=== PATIENT | male | born 1930 | race Caucasian/White ===

== ENCOUNTER → 2017-04-23 | Day surgery (SDC) | payer BC ==
[~2017-04-23] VITALS: Ht 181.6 cm; Wt 83.9 kg
[~2017-04-23] MED LIST: ASPI325T8 PO; BUPIVAC MPF-EPI 0.5%-1:200000 30 ML VIAL. ONE; DEXAMETHASONE SOD PHOS 20 MG/5 ML VIAL. ONE; GLIP5TAB10 PO; GLYCOPYRROLATE 1 MG/5 ML VIAL. ONE; HYDR-971 PO; HYDROcodone/APAP 5/325MG 1 TAB TABLET PO ONE; HYDROmorphone 2 MG/ML VIAL IV PRN; IV RINGERS,LACTATED 1000ML 1,000 ML IV SCH; LIDOCAINE 1% 1 ML SYRINGE. ID PRN; LIDOCAINE 2% PF Vial for OR 5 ML VIAL. ONE; METF-620 PO; METO25TA4 PO; MORPHINE SULFATE 2 MG/ML DISP.SYRIN. IV PRN; NEOSTIGMINE 10 MG/10 ML VIAL. ONE; ONDANSETRON PF 4 MG/2 ML VIAL. IV PRN; ONDANSETRON PF 4 MG/2 ML VIAL. ONE; PROCHLORPERAZINE 10 MG/2 ML VIAL. IV PRN; PROPOFOL 20 ML IV ONE; ROCURONIUM 100 MG/10 ML VIAL. ONE; SEVOFLURANE 61 TO 120 MINUTES. IH ONE; SIMV40TA3 PO; TAMS0.4C2 PO; ePHEDrine PF IN SALINE 50 MG/5 ML DISP.SYRIN IV ONE; fentaNYL PF VIAL 100 MCG/2 ML VIAL IV PRN; fentaNYL PF VIAL 100 MCG/2 ML VIAL ONE
--- NOTE | 2017-04-23 07:04 | PDOC1 ---
History and Physical Date of Admission Date of Admission DATE: 04/23/17 TIME: 07:01 History of Present Illness History of Present Illness The patient is an 86 year old male who was referred with an umbilical hernia. He states it has been there for quite some time, and appears to be slowly enlarging. Past Medical History Past Medical History Diabetes, HTN, CAD, hypercholesterolemia Past Surgical History Past Surgical History CABG in 2003, excision of nevus Social History Smoke: No ALCOHOL: rare Current Medications Current Medications Current Medications Ondansetron HCl (Zofran) 4 mg PRN Q6HRS PRN IV NAUSEA/VOMITING; Start 04/23/17 at 07:00; Stop 04/24/17 at 06:59 Fentanyl Citrate (Fentanyl 2ml Vial) 25 mcg PRN Q5MIN PRN IV MILD PAIN; Start 04/23/17 at 07:00; Stop 04/24/17 at 06:59 Fentanyl Citrate (Fentanyl 2ml Vial) 50 mcg PRN Q5MIN PRN IV MODERATE PAIN; Start 04/23/17 at 07:00; Stop 04/24/17 at 06:59 Morphine Sulfate 1 mg PRN Q10MIN PRN IV SEVERE PAIN; Start 04/23/17 at 07:00; Stop 04/24/17 at 06:59 Ringer's Solution 1,000 ml @ 30 mls/hr Q24H IV ; Start 04/23/17 at 07:00; Stop 04/23/17 at 18:59 Lidocaine HCl 2 ml PRN 1X PRN ID PRIOR TO IV START; Start 04/23/17 at 07:00; Stop 04/24/17 at 06:59 Hydromorphone HCl (Dilaudid) 0.5 mg PRN Q10MIN PRN IV SEV PAIN, Second choice; Start 04/23/17 at 07:00; Stop 04/24/17 at 06:59 Prochlorperazine Edisylate (Compazine) 5 mg PACU PRN PRN IV NAUSEA, MRX1; Start 04/23/17 at 07:00; Stop 04/24/17 at 06:59 Cefazolin Sodium/ Dextrose 50 ml @ 100 mls/hr 1X PREOP PRN IV PRIOR TO PROCEDURE; Start 04/23/17 at 06:00; Stop 04/23/17 at 18:00 Bupivacaine HCl/ Epinephrine Bitart (Sensorcain-Mpf Epi 0.5%-1:[id number]) 30 ml STK -MED ONCE .ROUTE ; Start 04/23/17 at 06:32; Stop 04/23/17 at 06:33; Status DC Active Scripts Active Reported Glipizide 5 Mg Tablet 1 Tab PO DAILY Simvastatin 40 Mg Tablet 1 Tab PO QHS Aspirin 325 Mg Tablet 1 Tab PO DAILY Tamsulosin Hcl 0.4 Mg Cap.er.24h 1 Cap PO QEVNG Metoprolol Tartrate 25 Mg Tablet 1 Tab PO BID Metformin Hcl 1,000 Mg Tablet 1,000 Mg PO BIDBFRMEAL Allergies Allergies: Coded Allergies: Sulfa (Sulfonamide Antibiotics) (Verified Allergy, Intermediate, HIVES, 05/05/15) ROS General: No: Chills, Night Sweats, Fatigue, Malaise, Appetite, Other PSYCHOLOGICAL ROS: No: Anxiety, Behavioral Disorder, Concentration difficultie , Decreased libido, Depression, Disorientation, Hallucinations, Hostility, Irritablity, Memory difficulties, Mood Swings, Obsessive thoughts, Physical abuse, Sexual abuse, Sleep disturbances, Suicidal ideation, Other Eyes: No Blurry vision, No Decreased vision, No Double vision, No Dry eyes, No Excessive tearing, No Eye Pain, No Itchy Eyes, No Loss of vision, No Photophobia , No Scotomata, No Uses contacts, No Uses glasses, No Other HEENT: No: Heacaches, Visual Changes, Hearing change, Nasal congestion, Nasal discharge, Oral lesions, Sinus pain, Sore Throat, Epistaxis, Sneezing, Snoring, Tinnitus, Vertigo, Vocal changes, Other ALLERGY AND IMMUNOLOGY: No: Hives, Insect Bite Sensitivity, Itchy/Watery Eyes, Nasal Congestion, Post Nasal Drip, Seasonal Allergies, Other Hematological and Lymphatic: No: Bleeding Problems, Blood Clots, Blood Transfusions, Brusing, Night Sweats, Pallor, Swollen Lymph Nodes, Other ENDOCRINE: No: Breast Changes, Galactorrhea, Hair Pattern Changes, Hot Flashes , Malaise/lethargy, Mood Swings, Palpitations, Polydipsia/polyuria, Skin Changes , Temperature Intolerance, Unexpected Weight Changes, Other Respiratory: No: Cough, Hemoptysis, Orthopnea, Pleuritic Pain, Shortness of breath, SOB with excertion, Sputum Changes, Stridor, Tachypnea, Wheezing, Other Cardiovascular: No Chest Pain, No Palpitations, No Orthopnea, No Paroxysmal Noc. Dyspnea, No Edema, No Lt Headedness, No Other Gastrointestinal: No Nausea, No Vomiting, No Abdominal Pain, No Diarrhea, No Constipation, No Melena, No Hematochezia, No Other Genitourinary: No Dysuria, No Frequency, No Incontinence, No Hematuria, No Retention, No Discharge, No Urgency, No Pain, No Flank Pain, No Other, No , No , No , No , No , No , No Musculoskeletal: No Gait Disturbance, No Joint Pain, No Joint Stiffness, No Joint Swelling, No Muscle Pain, No Muscular Weakness, No Pain In:, No Swelling In:, No Other Neurological: No Behavorial Changes, No Bowel/Bladder ControlChng, No Confusion , No Dizziness, No Gait Disturbance, No Headaches, No Impaired Coord/balance, No Memory Loss, No Numbness/Tingling, No Seizures, No Speech Problems, No Tremors, No Visual Changes, No Weakness, No Other Skin: No Dry Skin, No Eczema, No Hair Changes, No Lumps, No Mole Changes, No Mottling, No Nail Changes, No Pruritus, No Rash, No Skin Lesion Changes, No Other, No Acne Physical Exam General: Alert, Oriented X3, Cooperative HEENT: Atraumatic Lungs: Clear to auscultation Heart: RRR Abdomen: Soft, No tenderness, Other (reducible mod sized umbilical hernia) Rectal Exam: not examined Extremities: No clubbing, No cyanosis Skin: No rashes, No breakdown Neuro: Normal speech Psych/Mental Status: Mental status NL VTE Prophylaxis Ordered VTE Prophylaxis Devices: Yes VTE Pharmacological Prophylaxi: No Assessment/Plan Assessment/Plan 86 year old male with umbilical hernia. I reviewed the details of hernia repair including the use of mesh. The risks of surgery were discussed as well. He understands and would like to proceed. LINK ALANIZ MD Apr 23, 2017 07:04
--- NOTE | 2017-04-23 08:57 | PDOC4 ---
Operative Note Operative Note Operative Note: Preoperative Diagnosis: Umbilical hernia Postoperative Diagnosis: Same Procedure: Umbilical hernia repair with mesh Surgeon: Joseph Anesthesia: Gen. EBL: 10 mL Specimen: None Drains: None Complications: None Indication: The patient is an 86-year-old male who is referred with an enlarging umbilical hernia. He is interested in surgical repair. The details and risks of surgery were discussed. The risks include bleeding, infection, hernia recurrence, anesthetic risk, pain, potential need for additional surgery or procedure. He understands and would like to proceed. Description: The patient was taken to the operating room and placed supine on the operating table. Gen. anesthesia was performed. The abdomen was prepped with ChloraPrep and draped in a standard surgical manner. A small curved infraumbilical incision was made in the skin with a scalpel. Cautery dissection was carried down to the fascia. The umbilical tissue was elevated off the fascia exposing the hernia defect. A preperitoneal plane was developed with blunt dissection in all directions the hernia defect. A medium sized Ventralex ST mesh was then placed in the preperitoneal plane. The mesh provided good coverage of the hernia defect with overlap in all directions. The mesh was sutured into position at the 12, 3, 6, 9:00 positions using 0 Prolene placed in a horizontal mattress fashion. The fascia was then closed over the mesh with interrupted 0 Prolene sutures. The umbilicus was secured back down to the fascia with 0 Vicryl. Subcutaneous tissue was approximated with interrupted 3-0 Vicryl. The skin was then closed with a 4-0 Monocryl running suture. The incision was infiltrated with half percent Marcaine with epinephrine. Steri- Strips and a sterile dressing were then applied. The patient tolerated the procedure well and was sent to the recovery room in stable condition. At the end of the case all counts were correct. LINK ALANIZ MD Apr 23, 2017 08:57
--- NOTE | 2017-04-23 08:59 | DISCH ---
DISCHARGE INSTRUCTIONS Condition on Discharge Condition on Discharge: Stable Activity After Discharge Activity Instructions for Disc: Other, see below (no lifting over 20 lbs X 4 weeks) Diet after Discharge Diet after Discharge: Regular Wound Incision Care Wound/Incision Care: Other, see below (keep dressing clean and dry X 72 hours, may then remove and shower) Follow-Up Follow up with: Dr Alaniz in 2 weeks in office; call for appt [phone] LINK ALANIZ MD Apr 23, 2017 08:59
[2017-04-23 10:15] VITALS: BP 133/64
== END | disposition home or self-care (01) ==
LOC: SURG 06:51
PROVIDERS: ATTEND Surgery
DX: K42.9 Umbilical hernia without obstruction or gangrene (principal); E78.00 Pure hypercholesterolemia, unspecified; I25.10 Atherosclerotic heart disease of native coronary artery without angina pectoris; I10 Essential (primary) hypertension; E11.9 Type 2 diabetes mellitus without complications; Z86.39 Personal history of other endocrine, nutritional and metabolic disease; Z72.89 Other problems related to lifestyle; Z87.891 Personal history of nicotine dependence; Z88.0 Allergy status to penicillin; Z95.1 Presence of aortocoronary bypass graft
CPT/HCPCS: 49585; 82962; J0690; J1100; J2405; J2704; J2710; J3010; J3490; J2001

== ENCOUNTER 2018-03-18 15:23 | Inpatient (IN) | payer BC, MEDICARE ==
[2018-03-18 15:48] LABS: ADD MAN DIFF? NO
[2018-03-18 15:49] LABS: BASO # 0.1 x10^3/uL (0.0-0.2); BASO % 1 % (0-3); EOS # 0.1 x10^3/uL (0.0-0.7); EOS % 2 % (0-3); HEMATOCRIT 37.3 % (39.0-53.0); HEMOGLOBIN 12.7 g/dL (13.0-17.5); LYMPH # 1.8 x10^3/uL (1.0-4.8); LYMPH % 27 % (24-48); MEAN CORPUSCULAR HEMOGLOBIN 32 pg (25-35); MEAN CORPUSCULAR HGB CONC 34 g/dL (31-37); MEAN CORPUSCULAR VOLUME 94 fL (79-100); MONO # 0.7 x10^3/uL (0.0-1.1); MONO % 11 % (0-9); NEUT % 59 % (31-73); PLATELET COUNT 203 x10^3/uL (140-400); RED BLOOD COUNT 3.96 x10^6/uL (4.30-5.70); RED CELL DISTRIBUTION WIDTH 13.3 % (11.5-14.5); WHITE BLOOD COUNT 6.8 x10^3/uL (4.0-11.0)
[2018-03-18 16:11] LABS: ANION GAP 11 (6-14); BLOOD UREA NITROGEN 13 mg/dL (8-26); BUN/CREATININE RATIO 12 (6-20); CALCIUM 9.1 mg/dL (8.5-10.1); CARBON DIOXIDE 26 mmol/L (21-32); CHLORIDE 97 mmol/L (98-107); CREATININE 1.1 mg/dL (0.7-1.3); GFR 63.5; GLUCOSE 121 mg/dL (70-99); POTASSIUM 4.5 mmol/L (3.5-5.1); SODIUM 134 mmol/L (136-145)
[2018-03-18 16:16] LABS: ALBUMIN 3.5 g/dL (3.4-5.0); ALK PHOS 54 U/L (46-116); ALT (SGPT) 15 U/L (16-63); AST (SGOT) 18 U/L (15-37); TOTAL BILIRUBIN 0.3 mg/dL (0.2-1.0)
[2018-03-18 16:19] LABS: TROPONINI 0.055 ng/mL (0.000-0.055)
[2018-03-18] MEDS: METOPROLOL TARTRATE 5 MG/5 ML VIAL. IVP ×2 (16:29→17:37)
[2018-03-19] MEDS: METOPROLOL TARTRATE 5 MG/5 ML VIAL. IVP (08:20)
[2018-03-19] MEDS: DIGOXIN IV 500 MCG/2 ML AMPUL. IV (09:03)
[2018-03-19 10:18] LABS: ANION GAP 6 (6-14); BLOOD UREA NITROGEN 12 mg/dL (8-26); CALCIUM 8.4 mg/dL (8.5-10.1); CARBON DIOXIDE 29 mmol/L (21-32); CHLORIDE 102 mmol/L (98-107); GFR 70.8; GLUCOSE 217 mg/dL (70-99); MAGNESIUM 1.2 mg/dL (1.8-2.4); POTASSIUM 4.1 mmol/L (3.5-5.1); SODIUM 137 mmol/L (136-145)
[2018-03-19 10:34] LABS: THYROID STIM HORMONE (TSH) 5.497 uIU/mL (0.358-3.74)
[2018-03-19] MEDS: METOPROLOL TART IMMED RELEASE 25 MG TABLET. PO ×3 (14:40→23:38)
[2018-03-19] MEDS: MAGNESIUM SULFATE 4GM 100 ML IV (15:30)
[2018-03-19] MEDS: ASPIRIN ENTERIC COATED 325 MG TABLET.DR. PO (18:20)
[2018-03-20] MEDS: METOPROLOL TART IMMED RELEASE 25 MG TABLET. PO ×4 (06:34→14:04)
[2018-03-20 09:53] LABS: MAGNESIUM 1.8 mg/dL (1.8-2.4)
[2018-03-20] MEDS: MULTIVITAMIN with MINERAL TABLET. PO (10:48)
[2018-03-20] MEDS: ASPIRIN 325 MG TABLET PO (10:48)
[2018-03-20] MEDS: glipiZIDE 5 MG TABLET PO (10:48)
[2018-03-20 10:52] LABS: POC GLUCOSE 187 mg/dL (70-99)
[2018-03-20] MEDS: DIGOXIN IV 500 MCG/2 ML AMPUL. IV (16:12)
[2018-03-20] MEDS: TAMSULOSIN 0.4 MG CAP.ER.24H. PO (17:36)
[2018-03-20] MEDS: SIMVASTATIN 40 MG TABLET. PO (21:04)
[2018-03-20] MEDS: METOPROLOL TART IMMED RELEASE 50 MG TABLET. PO (21:05)
[2018-03-21 08:00] LABS: POC GLUCOSE 145 mg/dL (70-99)
[2018-03-21] MEDS: MULTIVITAMIN with MINERAL TABLET. PO (08:32)
[2018-03-21] MEDS: DIGOXIN 125 MCG TABLET. PO (08:32)
[2018-03-21] MEDS: ASPIRIN 325 MG TABLET PO (08:32)
[2018-03-21] MEDS: METOPROLOL TART IMMED RELEASE 50 MG TABLET. PO ×3 (08:32→20:08)
[2018-03-21] MEDS: glipiZIDE 5 MG TABLET PO (08:32)
[2018-03-21] MEDS: METOPROLOL TARTRATE 5 MG/5 ML VIAL. IVP (13:38)
[2018-03-21] MEDS ORDERED: AMIODARONE 900 MG in IV DEXTROSE 5% 500 ML IV ×2 (17:15→23:15)
[2018-03-21] MEDS: AMIODARONE 150 MG in IV DEXTROSE 5% 100ML 100 ML IV (17:44)
[2018-03-21] MEDS: TAMSULOSIN 0.4 MG CAP.ER.24H. PO (17:44)
[2018-03-21] MEDS: ATORVASTATIN CALCIUM 20 MG TABLET PO (20:07)
[2018-03-21 20:49] LABS: POC GLUCOSE 135 mg/dL (70-99)
[2018-03-22] MEDS: ASPIRIN 325 MG TABLET PO (08:24)
[2018-03-22] MEDS: glipiZIDE 5 MG TABLET PO (08:24)
[2018-03-22] MEDS: MULTIVITAMIN with MINERAL TABLET. PO (08:24)
[2018-03-22] MEDS: DIGOXIN 125 MCG TABLET. PO (08:25)
[2018-03-22] MEDS: METOPROLOL TART IMMED RELEASE 50 MG TABLET. PO (08:26)
== END 2018-03-22 15:00 | disposition home health service (06) | DRG 308 ==
LOC: ER 15:23 → 2 SOUTH 19:06
DX: I48.91 Unspecified atrial fibrillation (principal); I50.31 Acute diastolic (congestive) heart failure; I25.10 Atherosclerotic heart disease of native coronary artery without angina pectoris; I48.92 Unspecified atrial flutter; I11.0 Hypertensive heart disease with heart failure; E78.5 Hyperlipidemia, unspecified; E11.9 Type 2 diabetes mellitus without complications; Z88.2 Allergy status to sulfonamides; Z82.49 Family history of ischemic heart disease and other diseases of the circulatory system; Z95.1 Presence of aortocoronary bypass graft; Z86.73 Personal history of transient ischemic attack (TIA), and cerebral infarction without residual deficits; F02.80 Dementia in other diseases classified elsewhere, unspecified severity, without behavioral disturbance, psychotic disturbance, mood disturbance, and anxiety; M19.90 Unspecified osteoarthritis, unspecified site; E03.9 Hypothyroidism, unspecified; E78.00 Pure hypercholesterolemia, unspecified; Z87.891 Personal history of nicotine dependence
CPT/HCPCS: 36415; 71045; 80048; 80053; 82962; 83735; 84443; 84484; 85025; 93005; 96374; 96375; 97161-GP; 99285; 99285-25; J0282; J1160; J3475; J3490